=== PATIENT | female | born 1965 | race Caucasian/White ===

== ENCOUNTER 2020-02-05 07:21 | Day surgery (SDC) | payer BC ==
[2020-02-01 11:55] VITALS: BMI 28.3
[2020-02-05] MEDS ORDERED: PROPOFOL 20 ML ONE ×2 (07:37)
[2020-02-05 07:42] VITALS: TEMP 98.2
[2020-02-05 10:18] VITALS: BP 120/64; PULSE 78
== END 2020-02-05 10:20 | disposition home or self-care (01) ==
LOC: FASU-ENDO 07:21
PROVIDERS: ATTEND Internal Medicine Gastroenterology
PROC: 0DB68ZX Excision of Stomach, Via Natural or Artificial Opening Endoscopic, Diagnostic (ICD-10-PCS; 2020-02-05)
PROC: 0DB48ZX Excision of Esophagogastric Junction, Via Natural or Artificial Opening Endoscopic, Diagnostic (ICD-10-PCS; 2020-02-05)
PROC: 0DB98ZX Excision of Duodenum, Via Natural or Artificial Opening Endoscopic, Diagnostic (ICD-10-PCS; principal; 2020-02-05 09:22)
DX: K29.70 Gastritis, unspecified, without bleeding (principal); K22.8 Other specified diseases of esophagus
CPT/HCPCS: 88305-TC